=== PATIENT | male | born 1970 | race Caucasian/White ===

== ENCOUNTER 2016-08-22 14:08 | Inpatient (IN) | payer BC ==
[2016-08-22] MEDS ORDERED: SODIUM CHLORIDE 0.9% 1,000 ML IV STA ×2 (15:00)
[2016-08-22] MEDS ORDERED: INSULIN REGULAR 100 UNIT in SODIUM CHLORIDE 0.9% 100 ML IV ONE (15:01)
[2016-08-22 15:37] LABS: Glucose,Whole Blood >600 mg/dL (75-99)
[2016-08-22 15:42] LABS: Appearance,Urine Clear (Clear); Bilirubin,Urine Negative (Negative); Glucose,Urine (UA) 4+ (Negative); Ketones,Urine Trace (Negative); Leukocyte Esterase,Urine Negative (Negative); Nitrite,Urine Negative (Negative); PH, Urine 6.5 (5.0-8.0); Protein,Urine Negative (Negative); UA Billing (MACRO vs. MICRO) CHEM; Urobilinogen,Urine <2.0 mg/dL (<2.0)
[2016-08-22 15:43] LABS: Basophils # (A) 0.1 k/uL (0-0.2); Basophils % (A) 1 %; CH 32.4; CHCM 34.5; Eosinophils # (A) 0.1 k/uL (0-0.7); Eosinophils % (A) 1 %; HCT 43.6 % (39.0-53.0); HGB 14.5 gm/dL (13.0-17.5); Luc # (Auto) 0.07; Luc % (Auto) 1; Lymphocytes # (A) 1.4 k/uL (1.0-4.8); Lymphocytes % (A) 16 %; MCH 31.4 pg (25.0-35.0); MCHC 33.3 g/dL (31.0-37.0); MCV 94.2 fL (80.0-100.0); Mean Platelet Volume 8.9; Monocytes # (A) 0.3 k/uL (0-1.0); Monocytes % (A) 4 %; Neutrophils # (A) 6.9 k/uL (1.3-7.7); Neutrophils % (A) 78 %; RBC 4.63 m/uL (4.30-5.90); RDW 12.4 % (11.5-15.5); WBC 8.8 k/uL (3.8-10.6); WBC (Perox) 8.85
[2016-08-22 15:53] LABS: ALT 43 U/L (21-72); AST 32 U/L (17-59); Alkaline Phosphatase 110 U/L (38-126); Anion Gap 11 mmol/L; Blood Urea Nitrogen 14 mg/dL (9-20); Carbon Dioxide 29 mmol/L (22-30); Chloride 88 mmol/L (98-107); Magnesium 1.7 mg/dL (1.6-2.3); Non-African American GFR(MDRD) >60 (>60 ml/min/1.73 sqM); Phosphorous 4.1 mg/dL (2.5-4.5); Potassium 5.1 mmol/L (3.5-5.1); Sodium 128 mmol/L (137-145); Total Bilirubin 0.6 mg/dL (0.2-1.3); Total Protein 6.9 g/dL (6.3-8.2)
[2016-08-22 15:55] LABS: Partial Thromboplastin Time 23.8 sec (22.0-30.0); Prothrombin Time 10.5 sec (9.0-12.0)
[2016-08-22 16:00] LABS: Glucose 757 mg/dL (74-99)
--- NOTE | 2016-08-22 16:22 | ED ---
General Adult HPI - General Chief complaint: Recheck/Abnormal Lab/Rx Stated complaint: High Sugar Time Seen by Provider: 08/22/16 14:52 Source: patient Mode of arrival: ambulatory Limitations: no limitations - History of Present Illness Initial comments: This 46-year-old white male presents with a complaint of high blood sugar. He states that he was seen at an urgent care earlier today and they sent him to the emergency department. His blood sugar was 445 at the urgent care. Over the past 2 weeks he has had some blurry vision, a 10 pound weight loss, increased thirst, urinary frequency. He denies any history of known diabetes. He denies any chest pain shortness of breath fever or chills. He does have a history of pancreatitis previously. No other complaints or modifying factors. - Related Data Home Medications Medication Instructions Recorded Confirmed No Known Home Medications [No 08/22/16 08/22/16 Known Home Medications] Allergies Allergy/AdvReac Type Severity Reaction Status Date / Time No Known Allergies Allergy Verified 08/22/16 15:12 Review of Systems ROS Statement: Those systems with pertinent positive or pertinent negative responses have been documented in the HPI. ROS Other: All systems not noted in ROS Statement are negative. Past Medical History Past Medical History: No Reported History, GERD/Reflux, Liver Disease Additional Past Medical History / Comment(s): PANCRAETITIS, HEPATITIS C, History of Any Multi-Drug Resistant Organisms: None Reported Past Surgical History: Hernia Repair Additional Past Surgical History / Comment(s): MAYELA INGUINAL Past Anesthesia/Blood Transfusion Reactions: No Reported Reaction Past Psychological History: No Psychological Hx Reported Smoking Status: Current every day smoker Past Alcohol Use History: None Reported Additional Past Alcohol Use History / Comment(s): Patient states that he quit drinking alcohol a month ago. States he would drink about a half a pint of vadka a day in the past. Past Drug Use History: None Reported General Exam - General Exam Comments Initial Comments: GENERAL: The patient is well nourished and well hydrated. VITAL SIGNS: Heart rate, blood pressure, respiratory rate reviewed as recorded in nurse's notes. EYES: Pupils are round and reactive. Extraocular movements are intact. No conjunctival / lid redness or swelling. ENT: No external evidence of injury, swelling, or ecchymosis. Airway is patent. Throat is clear. NECK: Nontender. No swelling or evidence of injury. No subcutaneous emphysema. Trachea is midline. No thyroid mass. HEART: Regular rate and rhythm. Good peripheral pulses. LUNGS/CHEST: Breath sounds clear and equal bilaterally. No rales, rhonchi, or wheezes. No ecchymosis, subcutaneous emphysema, or tenderness. ABDOMEN: Abdomen soft without tenderness. No palpable masses or organomegaly. No peritoneal signs. No abdominal wall swelling or ecchymosis. EXTREMITIES: No extremity tenderness. Normal muscle tone and function. No thoracolumbar tenderness. NEUROLOGIC: Sensation is grossly intact. Cranial nerve exam reveals face is symmetrical, tongue is midline, speech is clear. SKIN: No abrasions or ecchymosis is noted. No induration or masses noted. PSYCHIATRIC: Alert and oriented. Appropriate behavior and judgment. Limitations: no limitations Course Vital Signs 08/22/16 14:41 Temperature 98.8 F Pulse Rate 103 H Respiratory 18 Rate Blood Pressure 102/59 O2 Sat by Pulse 99 Oximetry Medical Decision Making - Medical Decision Making The patient was seen and examined. All diagnostics were reviewed. An IV was started and he was thoroughly hydrated. He is started on the insulin drip. The EKG shows a normal sinus rhythm at a rate of 85. There is no acute ST-T wave changes noted. The SD interval is 150, QRS is 106, and QTC is 447. His laboratory is reviewed and shows an elevated blood sugar of 757. Acetone is negative. Urinalysis does show elevated glucose and ketones. It is felt as though he has severe hyperglycemia and would require admission for continued treatment of this new onset diabetes. Case is discussed with Dr. Cabral and he is agreeable to admission. - Lab Data Result diagrams: 08/22/16 15:15 08/22/16 15:15 Lab Results 08/22/16 08/22/16 08/22/16 Range/Units 15:15 15:15 15:15 WBC 8.8 (3.8-10.6) k/uL RBC 4.63 (4.30-5.90) m/uL Hgb 14.5 (13.0-17.5) gm/dL Hct 43.6 (39.0-53.0) % MCV 94.2 (80.0-100.0) fL MCH 31.4 (25.0-35.0) pg MCHC 33.3 (31.0-37.0) g/dL RDW 12.4 (11.5-15.5) % Plt Count 190 (150-450) k/uL Neutrophils % 78 % Lymphocytes % 16 % Monocytes % 4 % Eosinophils % 1 % Basophils % 1 % Neutrophils # 6.9 (1.3-7.7) k/uL Lymphocytes # 1.4 (1.0-4.8) k/uL Monocytes # 0.3 (0-1.0) k/uL Eosinophils # 0.1 (0-0.7) k/uL Basophils # 0.1 (0-0.2) k/uL PT 10.5 (9.0-12.0) sec INR 1.0 (<1.1) APTT 23.8 (22.0-30.0) sec Sodium 128 L (137-145) mmol/L Potassium 5.1 (3.5-5.1) mmol/L Chloride 88 L (98-107) mmol/L Carbon Dioxide 29 (22-30) mmol/L Anion Gap 11 mmol/L BUN 14 (9-20) mg/dL Creatinine 0.68 (0.66-1.25) mg/dL Est GFR (MDRD) Af Amer >60 (>60 ml/min/1.73 sqM) Est GFR (MDRD) Non-Af >60 (>60 ml/min/1.73 sqM) Glucose 757 H* (74-99) mg/dL POC Glucose (mg/dL) (75-99) mg/dL POC Glu Wound/Ostomy Clinical Nurse Specialist ID Calcium 9.0 (8.4-10.2) mg/dL Phosphorus 4.1 (2.5-4.5) mg/dL Magnesium 1.7 (1.6-2.3) mg/dL Total Bilirubin 0.6 (0.2-1.3) mg/dL AST 32 (17-59) U/L ALT 43 (21-72) U/L Alkaline Phosphatase 110 (38-126) U/L Total Protein 6.9 (6.3-8.2) g/dL Albumin 4.3 (3.5-5.0) g/dL Urine Color Urine Appearance (Clear) Urine pH (5.0-8.0) Ur Specific Centre (1.001-1.035) Urine Protein (Negative) Urine Glucose (UA) (Negative) Urine Ketones (Negative) Urine Blood (Negative) Urine Nitrate (Negative) Urine Bilirubin (Negative) Urine Urobilinogen (<2.0) mg/dL Ur Leukocyte Esterase (Negative) Acetone, Qual Negative (Negative) 08/22/16 08/22/16 Range/Units 15:15 15:35 WBC (3.8-10.6) k/uL RBC (4.30-5.90) m/uL Hgb (13.0-17.5) gm/dL Hct (39.0-53.0) % MCV (80.0-100.0) fL MCH (25.0-35.0) pg MCHC (31.0-37.0) g/dL RDW (11.5-15.5) % Plt Count (150-450) k/uL Neutrophils % % Lymphocytes % % Monocytes % % Eosinophils % % Basophils % % Neutrophils # (1.3-7.7) k/uL Lymphocytes # (1.0-4.8) k/uL Monocytes # (0-1.0) k/uL Eosinophils # (0-0.7) k/uL Basophils # (0-0.2) k/uL PT (9.0-12.0) sec INR (<1.1) APTT (22.0-30.0) sec Sodium (137-145) mmol/L Potassium (3.5-5.1) mmol/L Chloride (98-107) mmol/L Carbon Dioxide (22-30) mmol/L Anion Gap mmol/L BUN (9-20) mg/dL Creatinine (0.66-1.25) mg/dL Est GFR (MDRD) Af Amer (>60 ml/min/1.73 sqM) Est GFR (MDRD) Non-Af (>60 ml/min/1.73 sqM) Glucose (74-99) mg/dL POC Glucose (mg/dL) >600 H (75-99) mg/dL POC Glu Wound/Ostomy Clinical Nurse Specialist ID Branch, [place] Calcium (8.4-10.2) mg/dL Phosphorus (2.5-4.5) mg/dL Magnesium (1.6-2.3) mg/dL Total Bilirubin (0.2-1.3) mg/dL AST (17-59) U/L ALT (21-72) U/L Alkaline Phosphatase (38-126) U/L Total Protein (6.3-8.2) g/dL Albumin (3.5-5.0) g/dL Urine Color Light Yellow Urine Appearance Clear (Clear) Urine pH 6.5 (5.0-8.0) Ur Specific Centre 1.030 (1.001-1.035) Urine Protein Negative (Negative) Urine Glucose (UA) 4+ H (Negative) Urine Ketones Trace H (Negative) Urine Blood Negative (Negative) Urine Nitrate Negative (Negative) Urine Bilirubin Negative (Negative) Urine Urobilinogen <2.0 (<2.0) mg/dL Ur Leukocyte Esterase Negative (Negative) Acetone, Qual (Negative) Disposition Clinical Impression: New onset type 2 diabetes mellitus, Hyperglycemia, Uncontrolled diabetes mellitus, Dehydration, Hyponatremia, Hypochloremia, Weight loss, unintentional, Blurry vision, bilateral, Urinary frequency, Excessive thirst Disposition: [facility] Condition: Fair Time of Disposition: 16:24 Decision Date: 08/22/16 Decision Time: 16:24
[2016-08-22] MEDS ORDERED: SODIUM CHLORIDE 0.9% 1,000 ML IV SCH (16:30)
[2016-08-22 16:48] LABS: Glucose,Whole Blood >600 mg/dL (75-99)
[2016-08-22 17:49] LABS: Glucose,Whole Blood 429 mg/dL (75-99)
[2016-08-22] MEDS: PANTOPRAZOLE 40 MG/10 ML VIAL IVP SCH (18:36)
[2016-08-22 19:08] LABS: Glucose,Whole Blood 300 mg/dL (75-99)
[2016-08-22] MEDS: D5-0.45% NACL WITH KCL 20MEQ/L 1,000 ML IV SCH (19:16)
[2016-08-22 20:02] LABS: Glucose,Whole Blood 248 mg/dL (75-99)
[2016-08-22] MEDS ORDERED: INSULIN REGULAR 100 UNIT in SODIUM CHLORIDE 0.9% 100 ML IV SCH (20:15)
[2016-08-22] MEDS ORDERED: PNEUMOCOCCAL VACC-PNEUMOVAX 23 25 MCG/0.5 ML VIAL IM ONE (21:08)
[2016-08-22 21:35] LABS: Anion Gap 8 mmol/L; Blood Urea Nitrogen 13 mg/dL (9-20); Carbon Dioxide 30 mmol/L (22-30); Chloride 99 mmol/L (98-107); Glucose 191 mg/dL (74-99); Non-African American GFR(MDRD) >60 (>60 ml/min/1.73 sqM); Phosphorous 2.7 mg/dL (2.5-4.5); Potassium 3.3 mmol/L (3.5-5.1); Sodium 137 mmol/L (137-145)
[2016-08-22 21:56] LABS: Glucose,Whole Blood 215 mg/dL (75-99)
[2016-08-22] MEDS ORDERED: Magnesium Replacement Protocol 1 EACH MISC MISCELLANE PRN (22:33)
[2016-08-22] MEDS ORDERED: Potassium Replacement Protocol 1 EACH MISC MISCELLANE PRN (22:33)
[2016-08-22] MEDS: IBUPROFEN 800 MG TAB PO PRN (23:22)
[2016-08-22] MEDS: MAGNESIUM SULFATE-D5W PMX 1 GM in DEXTROSE/WATER 1 100ML.BAG IVPB SCH (23:38)
[2016-08-22 23:57] LABS: Glucose,Whole Blood 187 mg/dL (75-99)
[2016-08-23 00:29] VITALS: TEMP 98.1
[2016-08-23] MEDS: MAGNESIUM SULFATE-D5W PMX 1 GM in DEXTROSE/WATER 1 100ML.BAG IVPB SCH (00:46)
[2016-08-23 00:54] LABS: Anion Gap 9 mmol/L; Blood Urea Nitrogen 11 mg/dL (9-20); Carbon Dioxide 25 mmol/L (22-30); Chloride 101 mmol/L (98-107); Glucose 166 mg/dL (74-99); Non-African American GFR(MDRD) >60 (>60 ml/min/1.73 sqM); Phosphorous 2.7 mg/dL (2.5-4.5); Potassium 3.5 mmol/L (3.5-5.1); Sodium 135 mmol/L (137-145)
[2016-08-23] MEDS: D5-0.45% NACL WITH KCL 20MEQ/L 1,000 ML IV SCH ×3 (02:02→13:02)
[2016-08-23] MEDS: POTASSIUM CHLORIDE 10 MEQ, LIDOCAINE 2% INJ 10 MG in SODIUM CHLORIDE 0.9% 100 ML IV SCH ×2 (02:04→03:28)
[2016-08-23 02:14] LABS: Glucose,Whole Blood 220 mg/dL (75-99)
[2016-08-23 04:20] LABS: Glucose,Whole Blood 95 mg/dL (75-99)
[2016-08-23 05:13] LABS: Glucose,Whole Blood 138 mg/dL (75-99)
[2016-08-23] MEDS: IBUPROFEN 800 MG TAB PO PRN (06:48)
[2016-08-23 07:25] LABS: Glucose,Whole Blood 189 mg/dL (75-99)
[2016-08-23] MEDS ORDERED: metFORMIN 500 MG TAB PO SCH (07:30)
[2016-08-23 07:36] LABS: Anion Gap 5 mmol/L; Blood Urea Nitrogen 9 mg/dL (9-20); Carbon Dioxide 24 mmol/L (22-30); Chloride 106 mmol/L (98-107); Glucose 169 mg/dL (74-99); Non-African American GFR(MDRD) >60 (>60 ml/min/1.73 sqM); Potassium 4.3 mmol/L (3.5-5.1); Sodium 135 mmol/L (137-145)
[2016-08-23] MEDS: PANTOPRAZOLE 40 MG/10 ML VIAL IVP SCH (08:36)
[2016-08-23] MEDS ORDERED: ASPIRIN 81 MG CHEW PO SCH (09:00)
[2016-08-23] MEDS ORDERED: ENOXAPARIN 40 MG/0.4 ML SYRINGE SQ SCH (09:00)
[2016-08-23 09:03] LABS: Glucose,Whole Blood 294 mg/dL (75-99)
[2016-08-23 09:32] VITALS: RESP 18
[2016-08-23] MEDS ORDERED: INSULIN GLARGINE 100 UNIT/ML 10 ML VIAL SQ SCH ×2 (09:45→10:00)
[2016-08-23 10:34] VITALS: BMI 16.0
[2016-08-23 11:24] LABS: Glucose,Whole Blood 145 mg/dL (75-99)
[2016-08-23] MEDS ORDERED: INSULIN LISPRO (humaLOG) 300 UNIT/3 ML VIAL SQ SCH (12:30)
[2016-08-23 13:01] VITALS: BP 105/63; PULSE 76
--- NOTE | 2016-08-23 14:54 | P.DS ---
Providers Date of admission: 08/22/16 16:26 Expected date of discharge: 08/23/16 Attending physician: Gray Estes Primary care physician: Stated None Pertinent Studies: 46-year-old gentleman who presented on the day of admission to the emergency room he had been to an urgent care earlier in the day because he had not been feeling well in the urgent care his blood sugar was noted to be 445. To patient 's knowledge she has no history of diabetes is on no home medication. He does state that he has noted over the last several weeks he has dropped 10 pounds of weight unintentionally. He has noted increased thirst with frequent urination. Patient has no history of diabetes. Denied any chest pain. Hemoglobin A1c was too elevated to be calculated. Diabetic education was initiated. Diabetic class was set up by the ethanol operator. Patient was started on Lantus and Humalog patient was felt to be appropriate to be discharged home the blood sugars are ranging 145-90 [birth year] on Humalog 8 units before meals with Lantus 30 units every morning. Patient's cholesterol was 90 1. And the LDL 30 HDL 47 triglycerides 72 patient was felt to be stable and appropriate proceed with a discharge to home Impression discharge diagnosis New-onset type 2 diabetes elevated hemoglobin A1c not able to calculate Current every day smoker 1 pack greater than a 20 year history Recent treatment for pancreatitis Recently quit alcohol consumption one month prior prior to that half a pint daily of vodka History of hepatitis C per patient report Present on admission unintentional weight loss increased thirst with urinary frequency suspect due to hyperglycemia blood sugar 445 on admission The above dictated assessment and findings were discussed with dr meera Lima and the plan of care have been dictated as directed. Nicci Roman nurse practitioner acting as a scribe for dr estes Patient Condition at Discharge: Fair Plan - Discharge Summary New Discharge Prescriptions: INSULIN LISPRO (humaLOG) [humaLOG (formulary)] 8 unit SQ AC-TID #1 vial Insulin Glargine [Lantus] 30 unit SQ DAILY #1 vial metFORMIN HCL [Glucophage] 1,000 mg PO BID-W/MEALS #60 tab Discharge Medication List INSULIN LISPRO (humaLOG) [humaLOG (formulary)] 8 unit SQ AC-TID #1 vial [Rx] Insulin Glargine [Lantus] 30 unit SQ DAILY #1 vial 08/23/16 [Rx] metFORMIN HCL [Glucophage] 1,000 mg PO BID-W/MEALS #60 tab 08/23/16 [Rx] Follow up Appointment(s)/Referral(s): Gray Estes MD [Family Provider] - [facility], [NON-STAFF] - None,Stated [Primary Care Provider] - 1-2 days Patient Instructions/Handouts: How to Stop Smoking (GEN) Discharge Disposition: HOME SELF-CARE
--- NOTE | 2016-08-23 18:15 | HP ---
DATE OF ADMISSION: CHIEF COMPLAINT: Weight loss. HISTORY OF PRESENT ILLNESS: This 46-year-old white male came to the emergency room because of persistent weight loss. He had no idea why. He has been feeling fairly well, but he has had excessive appetite, excessive thirst and polyuria. In the emergency room his blood sugars were over 600. REVIEW OF SYSTEMS: He has had no other signs or symptoms of any problems. He has had no shortness of breath, chest pain, heart disease, hypertension, palpitations, abdominal pain, hematemesis, melena, hematochezia, jaundice, pancreatitis, renal disease, dysuria, frequency, urgency, etc. Past medical history, family history, and personal and social histories are all otherwise unremarkable or noncontributory. He is on no medication and DOES NOT HAVE ANY ALLERGIES. He has had a herniorrhaphy and no other surgery. He does not drink. 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 PHYSICAL EXAMINATION: Blood pressure 99/69 with a pulse of 110, respirations of 35. He is afebrile. In general he appeared to be slender, dehydrated and otherwise normal. Head, ears, eyes, nose, mouth and throat were normal except for dry mucous membranes. Neck is supple. Neck veins are not distended. Thyroid is not enlarged. Chest is clear. Cardiac exam is normal except for tachycardia. The abdomen is soft, non-tender, flat, with no masses or visceromegaly. Extremities are normal. Neurologically he is intact. IMPRESSION: New-onset uncontrolled diabetes mellitus. PLAN: 1. Bed rest. 2. IV fluids. 3. Intravenous insulin drip. 4. Diabetic education.
--- NOTE | 2016-08-23 18:57 | DS ---
DATE OF ADMISSION: 08/22/2016 DATE OF DISCHARGE: 08/23/2016 CHIEF COMPLAINT: Uncontrolled new-onset diabetes mellitus. HISTORY OF PRESENT ILLNESS: This gentleman is doing well. He is rehydrating and feels better. He has had no nausea or vomiting. PHYSICAL EXAMINATION: CHEST: Clear. CARDIAC: Normal. ABDOMEN: Soft and nontender. Blood sugar is down to around 108. IMPRESSION: New-onset diabetes mellitus with dehydration. PLAN: He will probably be able to go home today after he receives some diabetic teaching. He will go on basal bolus program with around 30 units of Lantus a day with 8 units of Humalog before meals. He will see me in the office in the next day or two. FINAL DIAGNOSES: 1. New-onset uncontrolled diabetes mellitus. 2. Dehydration. 3. Electrolyte imbalance. OPERATIONS: None. He is improved. He will be discharged by the nurse practitioner.
[2016-08-24] MEDS ORDERED: PANTOPRAZOLE 40 MG TABLET PO SCH (07:30)
== END 2016-08-23 15:50 | disposition home health service (06) | DRG 638 ==
LOC: EC 14:08 → 6SEL 16:26
PROVIDERS: ADMIT Family Medicine; ATTEND Family Medicine
PROC: 3E0234Z Introduction of Serum, Toxoid and Vaccine into Muscle, Percutaneous Approach (ICD-10-PCS; principal; 2016-08-23)
DX: E11.65 Type 2 diabetes mellitus with hyperglycemia (principal); E87.1 Hypo-osmolality and hyponatremia; E87.8 Other disorders of electrolyte and fluid balance, not elsewhere classified; R00.0 Tachycardia, unspecified; E86.0 Dehydration; F17.210 Nicotine dependence, cigarettes, uncomplicated; Z71.6 Tobacco abuse counseling; Z71.3 Dietary counseling and surveillance; Z23 Encounter for immunization; Z86.19 Personal history of other infectious and parasitic diseases; Z87.19 Personal history of other diseases of the digestive system
CPT/HCPCS: 36415; 80048; 80051; 80053; 80061; 81003; 82009; 82565; 82947; 83036; 83735; 84100; 84443; 84520; 85025; 85610; 85730; 90732; 93005; 96361; 96365; 99285